=== PATIENT | male | born 1940 | race Caucasian/White ===

== ENCOUNTER 2018-02-15 10:17 | Day surgery (SDC) | payer MEDICARE ==
[2018-02-12 08:34] VITALS: BMI 39.9
[2018-02-15] MEDS ORDERED: Propofol 200 MG/20 ML VIAL ONE (14:43)
[2018-02-15] MEDS ORDERED: Lidocaine 1% PF 5 ML VIAL ONE (14:43)
--- NOTE | 2018-02-15 15:10 | OP ---
DATE OF PROCEDURE: 02/15/2018 PROCEDURE: Colonoscopy with polypectomy. INDICATIONS FOR PROCEDURE: Hematochezia, history of colon polyps. DESCRIPTION OF PROCEDURE: After the risks and benefits of the procedure were explained to the patien t including risks of bleeding, infection, perforation, reaction to anesthesia and/or pain, informed c onsent was obtained. The patient was then taken to the endoscopy suite where deep sedation was admin istered via propofol and anesthesia support. A standard colonoscope was then introduced into the rec deb and advanced to the terminal ileum with careful examination of the mucosa upon withdrawal and the findings listed below. The quality of the prep was good. The patient tolerated the procedure well with no immediate perioperative complications. DIGITAL RECTAL EXAM: Small external hemorrhoids (nonbleeding) were seen on external exam. Normal sp hincter tone. COLON FINDINGS: Normal appearing mucosa was seen in the terminal ileum. Normal appearing mucosa was seen in the cecum, ileocecal valve and appendiceal orifice. Normal appearing mucosa was seen in the ascending and transverse colons. Two polyps measuring 3 mm and 5 mm in size were seen in the descen ding colon and completely removed with cold snare polypectomy. They were retrieved and placed in a s pecimen jar for evaluation. Normal appearing mucosa was seen in the sigmoid colon. Two additional p olyps measuring 2 to 3 mm in size were seen in the rectum and completely removed with cold biopsy for ceps. They were retrieved and placed in a specimen jar for evaluation. Multiple diverticula were se en throughout the colon in the transverse, descending and sigmoid colon, especially within the left c olon. These diverticula were medium to large in nature, but did not show any increased mucosal eryth nicole and/or inflammation. Hypertrophied anal papillae and small internal hemorrhoids were seen on ret roflexion. FINDINGS: 1. Two polyps measuring 3 mm and 5 mm in size were seen in the descending colon and completely remov ed with cold snare polypectomy. 2. Two additional polyps measuring 2 to 3 mm in size were seen in the rectum and completely removed with biopsy forceps. 3. Internal and external hemorrhoids (most likely source of the patient's hematochezia). 4. Hypertrophied anal papillae. 5. Moderate to severe left-sided diverticulosis. RECOMMENDATIONS: 1. We will follow up on pathology results with next colonoscopy screening interval depending on path ology. 2. We would recommend higher fiber diet given presence of internal and external hemorrhoids and dive rticulosis. 3. Recommend higher fiber diet. 4. Advised the patient against spending prolonged amount of time on the toilet as this can exacerbat e hemorrhoids. 5. Can use topical preparations for external hemorrhoids with flares of hematochezia. 6. Can follow up in GI clinic as needed.
== END 2018-02-15 14:56 | disposition home or self-care (01) ==
LOC: SDC 10:17
PROVIDERS: ATTEND Internal Medicine
PROC: 0DBM8ZX Excision of Descending Colon, Via Natural or Artificial Opening Endoscopic, Diagnostic (ICD-10-PCS; principal; 2018-02-15)
PROC: 0DBP8ZX Excision of Rectum, Via Natural or Artificial Opening Endoscopic, Diagnostic (ICD-10-PCS; 2018-02-15)
DX: K92.1 Melena (principal); D12.4 Benign neoplasm of descending colon; K63.5 Polyp of colon; K64.4 Residual hemorrhoidal skin tags; K57.30 Diverticulosis of large intestine without perforation or abscess without bleeding; K62.89 Other specified diseases of anus and rectum; K64.8 Other hemorrhoids; I10 Essential (primary) hypertension; E78.00 Pure hypercholesterolemia, unspecified; D64.9 Anemia, unspecified; M19.90 Unspecified osteoarthritis, unspecified site; J45.909 Unspecified asthma, uncomplicated; G47.30 Sleep apnea, unspecified; Z79.51 Long term (current) use of inhaled steroids; Z79.2 Long term (current) use of antibiotics; Z79.82 Long term (current) use of aspirin; Z79.899 Other long term (current) drug therapy; Z88.1 Allergy status to other antibiotic agents; Z88.0 Allergy status to penicillin; Z88.8 Allergy status to other drugs, medicaments and biological substances; Z98.890 Other specified postprocedural states; Z87.891 Personal history of nicotine dependence; Z86.010 Personal history of colon polyps; Z83.71 Family history of colonic polyps
CPT/HCPCS: 88305; J2001; J2704

== ENCOUNTER 2018-06-14 11:43 | Outpatient (CLI) | payer MEDICARE | END 2018-06-14 11:44 | disposition home or self-care (01) | LOC: BICRAD 11:43 | PROVIDERS: ATTEND Family Medicine | DX: R05 Cough (principal); I70.0 Atherosclerosis of aorta | CPT/HCPCS: 71046 ==

== ENCOUNTER 2018-07-26 10:09 | Outpatient (CLI) | payer MEDICARE ==
[~2018-07-26 10:09] MED LIST: Iopamidol 370 76% 100 ML VIAL ONE
--- NOTE | 2018-07-26 12:03 | CT ---
CT ANGIOGRAM CHEST WITH IV CONTRAST AND 3D RECONSTRUCTIONS: Date: 07-26-18 History: Shortness of breath. Recently diagnosed with bronchitis. Patient underling chemotherapy seco ndary to renal cell carcinoma. History of right nephrectomy. Comparison: None available. FINDINGS: There is suboptimal timing of the contrast bolus which limits evaluation for pulmonary emboli. There is no filling defect within the central pulmonary arteries, but small filling defects within the segm ental and subsegmental pulmonary arteries are difficult to entirely exclude. The thoracic aorta is normal in caliber without evidence of an aortic dissection. Vascular calcifications are seen in the aortic arch as well as involving the coronary arteries. There is no evidence of lymphadenopathy. A noncalcified pulmonary nodule is seen in the inferior medial aspect of the right upper lobe adjacen t to the mediastinum measuring 1 cm. An approximately 1 cm pleural based pulmonary nodule is also see n at the posterior aspect of the left lung base in addition to approximately 1 cm noncalcified pulmon sherron nodule at the right lung base. There is a ring enhancing lesion seen in the left hepatic lobe near the dome of the liver measuring 1 .7 cm with incompletely imaged hypodense lesion in the posterior segment right hepatic lobe measuring 1.4 cm. Punctate tiny low density lesion is also seen in the lateral segment left hepatic lobe. There is incomplete imaging of an enhancing nodule involving the right adrenal gland measuring 1.4 cm . Calcified granulomata are seen at the right lung base as well as in the lateral aspect dome of the li vincenzo. No lytic or sclerotic osseous lesions are seen. IMPRESSION: 1. Findings likely related to metastatic disease with bilateral pulmonary nodules, hepatic lesions, a s well as right adrenal nodule. Direct correlation with prior studies would be helpful for further ev aluation. 2. Suboptimal evaluation of the pulmonary arteries secondary to timing of the contrast bolus. While n o central pulmonary embolus is seen, a pulmonary embolus involving the segmental or subsegmental pulm onary arteries cannot be excluded based on this exam. POS: [facility]
== END 2018-07-26 10:10 | disposition home or self-care (01) ==
LOC: CT 10:09
PROVIDERS: ATTEND Internal Medicine Hematology & Oncology
DX: C78.7 Secondary malignant neoplasm of liver and intrahepatic bile duct (principal); C80.1 Malignant (primary) neoplasm, unspecified; R06.02 Shortness of breath; R91.8 Other nonspecific abnormal finding of lung field; K76.9 Liver disease, unspecified; E27.9 Disorder of adrenal gland, unspecified; Z90.5 Acquired absence of kidney
CPT/HCPCS: 71275

== ENCOUNTER 2019-09-08 11:44 | Outpatient (CLI) | payer MEDICARE ==
--- NOTE | 2019-09-08 11:58 | RAD ---
Exam: Chest 2 views HISTORY:History of renal and hepatic malignancy Comparison: 06/14/2018 FINDINGS: Lungs: No masses or consolidation. Cardiac silhouette: Stable size There is vascular calcification. Pulmonary vessels: Normal Pleural Spaces: Clear Pneumothorax: None Osseous abnormalities: None of acuity. IMPRESSION: No focal consolidation.
== END 2019-09-08 11:45 | disposition home or self-care (01) ==
LOC: BICRAD 11:44
PROVIDERS: ATTEND Internal Medicine Hematology & Oncology
DX: R06.02 Shortness of breath (principal); D49.511 Neoplasm of unspecified behavior of right kidney; C78.7 Secondary malignant neoplasm of liver and intrahepatic bile duct; Z79.899 Other long term (current) drug therapy
CPT/HCPCS: 36415; 71046; 80053; 82248; 83615; 84100; 84436; 84443; 84550

== ENCOUNTER 2019-09-21 11:17 | Outpatient (CLI) | payer MEDICARE ==
--- NOTE | 2019-09-21 13:04 | RAD ---
LUMBAR SPINE TWO VIEWS: HISTORY: Low back pain. FINDINGS: The lumbar vertebrae maintain height. Moderate degenerative changes are seen throughout with spurring from all lumbar vertebrae. Degenerative disk changes at all levels. Prominent facet hypertrophy thro ughout the lumbar spine. Mild posterior listhesis is noted at the L1-L2, L2-L3 and L3-L4 levels. There is a grade 1 anterior spondylolisthesis at L4-L5. IMPRESSION: Moderate degenerative changes of the lumbar spine as described. POS: [facility]
== END 2019-09-21 11:18 | disposition home or self-care (01) ==
LOC: BICRAD 11:17
PROVIDERS: ATTEND Family Medicine
DX: M54.5 Low back pain (principal); M47.816 Spondylosis without myelopathy or radiculopathy, lumbar region
CPT/HCPCS: 72100

== ENCOUNTER 2020-02-24 07:50 | Outpatient (CLI) | payer MEDICARE ==
[2020-02-24] MEDS ORDERED: Iopamidol-370 76% 500 ML 1 ML ONE (08:39)
--- NOTE | 2020-02-24 09:56 | CT ---
CT OF THE CHEST WITH CONTRAST CT OF THE ABDOMEN AND PELVIS WITH CONTRAST: COMPARISON: CT chest, abdomen, and pelvis 12/08/2019 and 11/08/2019. HISTORY: Right renal cancer status post nephrectomy with secondary cancer of the liver and intrahepatic biliar y duct. TECHNIQUE: 1. Multiple contiguous axial images were obtained in a CT of the chest with contrast. Sagittal and coronal reformats were performed. 2. Multiple contiguous axial images were obtained in a CT of the abdomen and pelvis with contrast. P.o. contrast was administered. Sagittal and coronal reformats were performed. FINDINGS: CHEST: There are scattered stable nodules in the lungs. In the medial aspect of the right upper lobe there is a 13 mm nodule. In the posterior aspect of the right upper lobe, there is a less than 4 mm nodule . In the lingula, there is an 11 mm nodule just above the right hemidiaphragm, there is a nodule sivan suring approximately 6 mm in size. No new pulmonary nodules are seen compared to the prior CTs from [facility]. The heart is normal in size without focal cardiac abnormality. No hilar or mediastinal lymphadenopat hy are seen. Calcifications are seen in the coronary arteries and aorta. The chest wall soft tissue s are unremarkable. There is a stable area of expansion of the left 10th rib at the costochondral ju nction measuring 1.5 cm in size. This is likely normal for this patient and does not likely represen t a metastatic lesions are seen in the thoracic skeleton. ABDOMEN AND PELVIS: The patient is status post right nephrectomy. There are stable hypodensities in the liver which are too small to definitely characterize. These could represent cysts. There is a stable 2.5 cm right a drenal mass. In the anterior aspect of the superior pole of the left kidney, there is a 3.5 cm area which demonstrates slight thickening of the cortex of the kidney compared to the rest of the kidney. This could represent a lobulation of the kidney, but a 3.5 cm mass in this location could not be ent irely excluded. The left adrenal gland, gallbladder, spleen, and pancreas are unremarkable. No free air, free fluid, or stranding changes are seen in the abdomen or pelvis. Scattered diverticu la are seen in the colon. The small bowel is unremarkable. No abdominal or pelvic lymphadenopathy a re seen. No suspicious osseous lesions are seen in the bones of the pelvis or lumbar spine. The abd ominal wall soft tissues are unremarkable. IMPRESSION: 1. Postsurgical changes from right nephrectomy. 2. Stable right adrenal mass. 3. Questionable abnormality in the anterior aspect of the left kidney along the superior pole. This remains stable compared to the prior exams, but a followup exam in 6 months is recommended to ensure continued stability. This may represent a lobulation of the kidney. 4. Stable pulmonary nodules. 5. Stable hypodensities in the liver. These are too small to definitely characterize and could pote ntially represent cysts. 6. Diverticulosis. POS: [facility]
== END 2020-02-24 07:51 | disposition home or self-care (01) ==
LOC: BICCT 07:50
PROVIDERS: ATTEND Internal Medicine Hematology & Oncology
DX: D49.511 Neoplasm of unspecified behavior of right kidney (principal); C78.7 Secondary malignant neoplasm of liver and intrahepatic bile duct; Z79.899 Other long term (current) drug therapy; Z90.5 Acquired absence of kidney; E27.8 Other specified disorders of adrenal gland; R91.8 Other nonspecific abnormal finding of lung field; K57.90 Diverticulosis of intestine, part unspecified, without perforation or abscess without bleeding; R93.3 Abnormal findings on diagnostic imaging of other parts of digestive tract; K76.89 Other specified diseases of liver
CPT/HCPCS: 36415; 71260; 74177; 80053; 83735; 84439; 84443; 85025; Q9967

== ENCOUNTER 2020-06-05 07:44 | Outpatient (CLI) | payer MEDICARE ==
--- NOTE | 2020-06-05 09:29 | CT ---
CT chest with IV contrast CT abdomen and pelvis with IV and oral contrast HISTORY: Right renal neoplasm. Secondary malignant neoplasm of liver and intrahepatic bile duct. Rest aging. COMPARISON: 02/24/2020, 12/08/2019, 11/08/2019. FINDINGS: Small well-circumscribed lucencies about the right sternoclavicular joint with the appearan ce of subcortical cysts are stable. Well-circumscribed nodule abutting the right upper mediastinum in the anterior segment right upper lo be is stable at 1.4 cm x 1.2 cm diameters on the axial images. The 1.3 cm soft tissue nodule within the lateral aspect of the left upper lobe has enlarged slightly (previously 1.0 cm). The 1.1 cm nodule abutting the right posterior medial cardiophrenic angle is stable. Subtle areas of mild parenchymal peripheral groundglass density at each posterior lung base are unchanged. There is calcification within the arterial structures, including the coronary arteries. Small amount of oral contrast material is evident within the mid to distal esophagus. The ill-defined subtle low density 1.5 cm lesion within the posterior segment right liver lobe periph erally and the tiny ill-defined low-density lesion within the lateral segment left liver lobe are stable. Right kidney is surgically absent. Right adrenal mass is now 3.0 cm x 2.8 cm greatest diamete rs (previously 2.5 cm x 2.4 cm). The area of lobular masslike prominence at the anterior aspect of the superior pole left kidney is stable at 3.5 cm greatest transverse diameter. At the level of the pancreatic head, a focal area of masslike prominence is now 4.9 cm x 4.9 cm great est diameters. On the previous study, this area measured 6.0 cm x 5.6 cm greatest diameters and was also present on prior outside studies from [facility]. Immediately superior, near the junction of the pancreatic neck and head, a lobular masslike prominence is 4.8 cm x 4.8 cm (previously 4.9 cm x 4.4 cm). A 1.6 cm nodule projecting anteriorly from the pancreatic body and a small nodular prominenc e at the pancreatic tail are stable. Diverticula arise from the colon without adjacent inflammation. Degenerative changes throughout the thoracolumbar spine. IMPRESSION : One of the nodules within the left lung upper lobe has enlarged slightly (1.3 cm). Other lung nodules and small liver lesions are stable. Right adrenal mass has enlarged to 3.0 cm. The largest of the pancreatic masses have decreased in size from the previous exams. The smaller ones are stable. Lobular prominence at the superior pole of the left kidney is unchanged in appearance. Diverticulosis. No evidence of diverticulitis. Atherosclerosis.
== END 2020-06-05 07:45 | disposition home or self-care (01) ==
LOC: BICCT 07:44
PROVIDERS: ATTEND Internal Medicine Hematology & Oncology
DX: C78.7 Secondary malignant neoplasm of liver and intrahepatic bile duct (principal); D49.511 Neoplasm of unspecified behavior of right kidney
CPT/HCPCS: 36415; 71260; 74177; 80053; 82248; 83615; 84100; 84436; 84443; 84550; 85025

== ENCOUNTER 2020-09-18 07:55 | Outpatient (CLI) | payer MEDICARE ==
[2020-09-18] MEDS ORDERED: Iopamidol-370 76% 500 ML 1 ML ONE (08:55)
--- NOTE | 2020-09-18 11:40 | CT ---
EXAM: CT chest, abdomen, and pelvis with IV contrast: HISTORY: Right kidney cancer with secondary cancer of liver and intrahepatic bile duct. COMPARISON: 06/05/2020 FINDINGS: CT THORAX: Lungs: The right upper lobe pulmonary nodule adjacent to the mediastinum is again seen measuring 1.4 cm x 1.2 cm and unchanged in size. The pulmonary nodule seen at the right lung base medially and inferiorly measuring 1.2 cm is stable in size. There is a lobulated pulmonary nodule in the left uppe r lobe measuring 1.3 cm in greatest dimension which is also similar in size to prior exam. Stable tiny subcentimeter pulmonary nodule posterior right upper lobe is again present. No additional pulmon sherron nodule or mass is visualized. Minimal groundglass densities at each lung base are stable. Pleura: No pleural effusion. Lymph nodes: The enlarged subcarinal lymph node is again present measuring 3.8 cm x 2.2 cm with prior measurement of 3.4 cm x 2.1 cm. A few much smaller subcarinal lymph nodes are also seen in the posterior mediastinum which are unchanged. Mediastinum: Vascular calcifications are seen in the thoracic aorta and involving the coronary arteri es. Chest wall: Minimal gynecomastia on the right. CT ABDOMEN AND PELVIS: Liver: Stable subcentimeter hypodense lesions left hepatic lobe with stable 1.2 cm hypodense lesion i n the posterior segment right hepatic lobe. Gallbladder: Within normal limits. Pancreas: The previously noted lobulated masses as well as additional smaller masses involving the pa ncreas are again seen. Largest mass involving the pancreatic head demonstrates heterogeneity and measures larger in size on the current study with measurement of 6.6 cm x 5.5 cm and previous measure ment of 6.4 cm x 5.3 cm cm. The mass at the junction of the head and neck of the pancreas measures 5.9 cm x 4.5 cm with previous measurements of 4.8 cm x 4.8 cm. Immediately adjacent to this mass is a nodular masslike density which may represent a portion of this larger mass. Within the body of the pancreas there is a nodule measuring 1.9 cm with previous measurement of 1.6 cm. There is a small mas s at the tail of the pancreas measuring 1.4 cm similar in size to prior exam. Spleen: Within normal limits. Adrenal glands: The right adrenal mass has enlarged measuring 4.1 cm x 3.3 cm in maximal dimensions w ith previous measurement of 3 cm x 2.8 cm. The left adrenal gland has a normal CT appearance. Kidneys: Evidence of right nephrectomy. The nodular prominence anterior aspect superior pole left kid bev is again seen is thought to be related to normal lobulated portion of the kidney. Urinary Bladder: Incompletely distended but normal in appearance. Reproductive organs: Within normal limits for patient's age. Bowel: Colonic diverticulosis is again seen with small amount retained fecal material seen in the col on. Loops of small bowel are normal in caliber. Adenopathy:No lymphadenopathy within the abdomen or pelvis. Peritoneum: No free fluid or fluid collection is seen. No free intraperitoneal gas is identified. Abdominal wall: No abnormalities seen. Osseous structures: No suspicious lytic or sclerotic osseous lesions are identified. Degenerative jose luis nges are seen in the spine with rate 1 anterolisthesis of L4 on L5. There is what appears to be remote fracture involving the lateral left 10th rib. IMPRESSION: 1. Interval enlargement of the right adrenal mass with greatest dimension of 4.1 cm. 2. Multiple pancreatic masses largest in the head of the pancreas which demonstrates heterogeneity an d measures 6.6 cm. This mass measures slightly larger in size compared to prior study. 3. Bilateral pulmonary nodules not significantly changed in size. No new pulmonary nodule is seen. 4. Stable subcentimeter hypodense lesions in the left hepatic lobe as well as stable hypodense lesion right hepatic lobe. 5. Mild enlargement of subcarinal lymph node.
== END 2020-09-18 07:56 | disposition home or self-care (01) ==
LOC: BICCT 07:55
PROVIDERS: ATTEND Internal Medicine Hematology & Oncology
DX: C78.7 Secondary malignant neoplasm of liver and intrahepatic bile duct (principal); D49.511 Neoplasm of unspecified behavior of right kidney; E27.8 Other specified disorders of adrenal gland; K86.89 Other specified diseases of pancreas; R91.8 Other nonspecific abnormal finding of lung field; K76.9 Liver disease, unspecified; R59.0 Localized enlarged lymph nodes
CPT/HCPCS: 36415; 71260; 74177; 80053; 82248; 83615; 84100; 84436; 84443; 84550; 85025; Q9967

== ENCOUNTER 2020-12-19 08:00 | Outpatient (CLI) | payer MEDICARE ==
--- NOTE | 2020-12-19 08:53 | CT ---
EXAM: CT Chest Abd Pelvis W Con PROVIDED CLINICAL HISTORY: Renal cancer COMPARISON: 09/18/2020 FINDINGS: The heart, pericardium and great vessels demonstrate a stable CT appearance. Vascular calcification i ncluding coronary calcium is redemonstrated. Enlarged subcarinal lymph node is again seen, stable with respect to prior. No additional thoracic lymph node enlargement is evident. Bilateral pulmonary nodules are redemonstrated, stable. There is no evidence for new nodule. No pleural fluid or pneumothorax apparent. The airway appears patent and of normal caliber. Interval enlargement of right adrenal mass, now measuring about 4 cm x 4.7 cm in greatest transverse dimensions, as compared to 3.3 x 4.1 cm on prior. Multiple pancreatic masses are redemonstrated, stable. Multiple subcentimeter hepatic hypodensities are redemonstrated, stable. The solid abdominal organs demonstrate an otherwise unremarkable CT appearance, with changes of right nephrectomy redemonstrated. There is no bowel dilatation, inflammatory fat stranding, free fluid or lymph node enlargement appare nt within the abdomen and pelvis. The osseous structures demonstrate no concerning lytic or blastic lesions. IMPRESSION: 1. Interval enlargement of right adrenal mass. 2. Otherwise stable exam.
[2020-12-19] MEDS ORDERED: Iopamidol-370 76% 500 ML 1 ML ONE (14:14)
== END 2020-12-19 08:01 | disposition home or self-care (01) ==
LOC: BICCT 08:00
PROVIDERS: ATTEND Internal Medicine Hematology & Oncology
DX: C78.7 Secondary malignant neoplasm of liver and intrahepatic bile duct (principal); D49.511 Neoplasm of unspecified behavior of right kidney; C80.1 Malignant (primary) neoplasm, unspecified; E27.8 Other specified disorders of adrenal gland
CPT/HCPCS: 71260; 74177; Q9967

== ENCOUNTER 2021-02-18 08:01 | Outpatient (CLI) | payer MEDICARE ==
[2021-02-18] MEDS ORDERED: Iopamidol-370 76% 500 ML 1 ML ONE (14:09)
== END 2021-02-18 08:02 | disposition home or self-care (01) ==
LOC: BICCT 08:01
PROVIDERS: ATTEND Internal Medicine Hematology & Oncology
DX: C78.7 Secondary malignant neoplasm of liver and intrahepatic bile duct (principal); D49.511 Neoplasm of unspecified behavior of right kidney; R91.8 Other nonspecific abnormal finding of lung field; E27.8 Other specified disorders of adrenal gland; K86.9 Disease of pancreas, unspecified; R59.0 Localized enlarged lymph nodes
CPT/HCPCS: 71260; 74177; Q9967

== ENCOUNTER 2021-05-14 08:34 | Outpatient (CLI) | payer MEDICARE ==
[2021-05-14] MEDS ORDERED: Iopamidol-370 76% 500 ML 1 ML ONE (13:29)
== END 2021-05-14 08:35 | disposition home or self-care (01) ==
LOC: BICCT 08:34
PROVIDERS: ATTEND Internal Medicine Hematology & Oncology
DX: D49.511 Neoplasm of unspecified behavior of right kidney (principal); C78.7 Secondary malignant neoplasm of liver and intrahepatic bile duct; E27.8 Other specified disorders of adrenal gland
CPT/HCPCS: 71260; 74177; 82565; Q9967

== ENCOUNTER 2021-07-28 19:30 | Outpatient (CLI) | payer MEDICARE | END 2021-07-28 19:31 | disposition home or self-care (01) | LOC: SLEEPLAB 19:30 | PROVIDERS: ATTEND Internal Medicine Critical Care Medicine | DX: G47.33 Obstructive sleep apnea (adult) (pediatric) (principal); R06.83 Snoring; G47.10 Hypersomnia, unspecified; G47.61 Periodic limb movement disorder; E66.9 Obesity, unspecified; Z68.36 Body mass index [BMI] 36.0-36.9, adult | CPT/HCPCS: 95811 ==

== ENCOUNTER 2024-09-22 07:12 | Day surgery (SDC) | payer MEDICARE ==
[2024-09-21 11:51] VITALS: BMI 33.8
[2024-09-22] MEDS ORDERED: PROPOFOL 20 ML ONE ×3 (08:23→09:07)
[2024-09-22] MEDS ORDERED: Glucagon 1 MG/ML KIT ONE (08:55)
== END 2024-09-22 11:08 | disposition home or self-care (01) ==
LOC: SDC 07:12
PROVIDERS: ATTEND Internal Medicine
PROC: 0DB98ZZ Excision of Duodenum, Via Natural or Artificial Opening Endoscopic (ICD-10-PCS; principal; 2024-09-22)
PROC: 0DB78ZZ Excision of Stomach, Pylorus, Via Natural or Artificial Opening Endoscopic (ICD-10-PCS; 2024-09-22)
PROC: 0DB68ZZ Excision of Stomach, Via Natural or Artificial Opening Endoscopic (ICD-10-PCS; 2024-09-22)
PROC: 0DB58ZZ Excision of Esophagus, Via Natural or Artificial Opening Endoscopic (ICD-10-PCS; 2024-09-22)
PROC: 0DBK8ZX Excision of Ascending Colon, Via Natural or Artificial Opening Endoscopic, Diagnostic (ICD-10-PCS; 2024-09-22)
PROC: 0DBL8ZX Excision of Transverse Colon, Via Natural or Artificial Opening Endoscopic, Diagnostic (ICD-10-PCS; 2024-09-22)
PROC: 0DBN8ZX Excision of Sigmoid Colon, Via Natural or Artificial Opening Endoscopic, Diagnostic (ICD-10-PCS; 2024-09-22)
PROC: 0DBM8ZX Excision of Descending Colon, Via Natural or Artificial Opening Endoscopic, Diagnostic (ICD-10-PCS; 2024-09-22)
PROC: 0DBH8ZX Excision of Cecum, Via Natural or Artificial Opening Endoscopic, Diagnostic (ICD-10-PCS; 2024-09-22)
DX: Z12.11 Encounter for screening for malignant neoplasm of colon (principal); D12.0 Benign neoplasm of cecum; D12.2 Benign neoplasm of ascending colon; D12.3 Benign neoplasm of transverse colon; D12.4 Benign neoplasm of descending colon; K57.30 Diverticulosis of large intestine without perforation or abscess without bleeding; K64.4 Residual hemorrhoidal skin tags; C24.1 Malignant neoplasm of ampulla of Vater; K29.50 Unspecified chronic gastritis without bleeding; K22.70 Barrett's esophagus without dysplasia; K62.89 Other specified diseases of anus and rectum; K44.9 Diaphragmatic hernia without obstruction or gangrene; K31.7 Polyp of stomach and duodenum; K63.5 Polyp of colon; K21.9 Gastro-esophageal reflux disease without esophagitis; I10 Essential (primary) hypertension; D64.9 Anemia, unspecified; E78.00 Pure hypercholesterolemia, unspecified; Z90.49 Acquired absence of other specified parts of digestive tract; Z79.890 Hormone replacement therapy; Z79.899 Other long term (current) drug therapy; Z88.8 Allergy status to other drugs, medicaments and biological substances; Z86.0100 Personal history of colon polyps, unspecified; Z85.520 Personal history of malignant carcinoid tumor of kidney; Z88.1 Allergy status to other antibiotic agents; Z87.891 Personal history of nicotine dependence; Z90.89 Acquired absence of other organs; Z98.890 Other specified postprocedural states
CPT/HCPCS: 43239; 45385; J1611; J2704; 88305; 88341; 88342

== ENCOUNTER 2024-12-02 05:56 | Day surgery (SDC) | payer MEDICARE ==
[2024-12-01 09:46] VITALS: BMI 34.4
[2024-12-02] MEDS ORDERED: Lidocaine 1% PF 5 ML VIAL ONE (06:43)
[2024-12-02] MEDS ORDERED: fentaNYL PF 100 MCG/2 ML SYRINGE ONE (06:43)
[2024-12-02] MEDS ORDERED: Rocuronium Bromide 10 MG/ML (10ML VIAL) ONE (06:43)
[2024-12-02] MEDS ORDERED: PROPOFOL 20 ML ONE (06:43)
[2024-12-02] MEDS ORDERED: Lidocaine 1% MPF 2 ML VIAL ONE (06:51)
[2024-12-02] MEDS ORDERED: Iopamidol 30 ML ONE (07:03)
[2024-12-02] MEDS ORDERED: Indomethacin 50 MG SUPP ONE (07:25)
[2024-12-02] MEDS ORDERED: Dexamethasone 20 MG/5 ML VIAL ONE (08:08)
[2024-12-02] MEDS ORDERED: Ondansetron PF 4 MG/2 ML Vial ONE (08:08)
[2024-12-02] MEDS ORDERED: SUGAMMADEX SODIUM 200 MG/2 ML VIAL ONE (08:25)
== END 2024-12-02 10:20 | disposition home or self-care (01) ==
LOC: SDC 05:56
PROVIDERS: ATTEND Internal Medicine
PROC: 0FBC8ZX Excision of Ampulla of Vater, Via Natural or Artificial Opening Endoscopic, Diagnostic (ICD-10-PCS; principal; 2024-12-02)
DX: C78.4 Secondary malignant neoplasm of small intestine (principal); C64.9 Malignant neoplasm of unspecified kidney, except renal pelvis; D12.6 Benign neoplasm of colon, unspecified; D64.9 Anemia, unspecified; K22.70 Barrett's esophagus without dysplasia; K21.9 Gastro-esophageal reflux disease without esophagitis; I10 Essential (primary) hypertension; E78.00 Pure hypercholesterolemia, unspecified; J45.909 Unspecified asthma, uncomplicated; J18.9 Pneumonia, unspecified organism; G62.9 Polyneuropathy, unspecified; Z98.890 Other specified postprocedural states; Z90.49 Acquired absence of other specified parts of digestive tract; Z90.89 Acquired absence of other organs; Z87.891 Personal history of nicotine dependence; Z88.0 Allergy status to penicillin; Z88.1 Allergy status to other antibiotic agents; Z88.8 Allergy status to other drugs, medicaments and biological substances; Z79.890 Hormone replacement therapy; Z79.2 Long term (current) use of antibiotics; Z79.1 Long term (current) use of non-steroidal anti-inflammatories (NSAID); Z79.899 Other long term (current) drug therapy
CPT/HCPCS: 43261; 74330; J1100; J2405; J2704; Q9967; 88305; 88341; 88342

== ENCOUNTER 2025-07-21 15:54 | Emergency (ER) | payer MEDICARE ==
[2025-07-21 17:03] LABS: #Basophils Less than 0.03 10x3/uL (0.0-0.2); #Eosinophils Less than 0.03 10x3/uL (0.0-0.7); #Monocytes 0.37 10x3/uL (0.11-0.59); #Neutrophils 4.46 10x3/uL (1.40-6.50); %Basophils 0.0 % (0.0-1.0); %Eosinophils 0.0 % (0.0-10.0); %Lymphocytes 21.3 % (21.0-51.0); %Monocytes 6.0 % (0.0-10.0); %Neutrophils 72.5 % (42.0-75.0); Hematocrit 22.2 % (42.0-52.0); Hemoglobin 6.4 g/dL (14.0-18.0); Mean Corpuscular Hemoglobin 28.8 pg (27.0-31.0); Mean Corpuscular Volume 100.0 fL (78.0-98.0); Platelet Count 268 10x3/uL (130-400); Red Blood Cell (RBC) Count 2.22 mill/uL (4.70-6.10); White Blood Cell (WBC) Count 6.15 10x3/uL (4.8-10.8)
[2025-07-21 17:13] LABS: ALT (SGPT) 15 U/L (Less than 45); AST (SGOT) 27 U/L (11-34); Albumin 2.0 g/dL (3.1-4.5); Alkaline Phosphatase 135 U/L (40-110); Anion Gap 15 mmol/L (10-20); BUN (Urea Nitrogen) 25 mg/dL (8.4-25.7); Bilirubin, Total 0.1 mg/dL (0.3-1.2); Calc. Creatinine Clearance 0 mL/min (70-130); Calcium 7.6 mg/dL (7.8-10.44); Carbon Dioxide 23 mmol/L (23-31); Chloride 107 mmol/L (98-107); Globulin 4.3 g/dL (2.4-3.5); Glucose 124 mg/dL (83-110); Potassium 4.1 mmol/L (3.5-5.1); Sodium 141 mmol/L (136-145)
[2025-07-21 17:30] LABS: Anisocytosis MODERATE=16-30 cells HPF (0-5); Macrocytosis SLIGHT = 6-15 cells HPF (0-5); Platelet Adequacy Comment Platelets Normal; Polychromasia SLIGHT = 2-3 cells HPF (0-2); Schistocytes SLIGHT = 2-5 cells HPF (0-1); Stomatocytes SLIGHT = 2-5 cells HPF (0-1)
[2025-07-21 17:41] LABS: INR-International Normal Ratio 1.3; Prothrombin Time 16.0 sec (12.0-14.7)
[2025-07-21 17:42] LABS: PTT 44.1 sec (22.9-36.1)
== END 2025-07-21 23:50 | disposition home or self-care (01) ==
LOC: ERS 15:54
DX: D64.9 Anemia, unspecified (principal); I10 Essential (primary) hypertension
CPT/HCPCS: 36430; 80053; 85025; 85610; 85730; 86850; 86900; 86901; 86920; 99284; P9016; 36415

== ENCOUNTER 2025-08-07 10:21 | Day surgery (SDC) | payer MEDICARE ==
[2025-08-07] MEDS ORDERED: Acetaminophen 500 MG TAB PO SCH (11:00)
[2025-08-07] MEDS ORDERED: diphenhydrAMINE 25 MG CAP PO SCH (11:00)
[2025-08-07 15:57] VITALS: BP 155/69; TEMP 97.8
== END 2025-08-07 15:29 | disposition home or self-care (01) ==
LOC: ONC/OP 10:21
PROVIDERS: ATTEND Internal Medicine Hematology & Oncology
DX: D64.9 Anemia, unspecified (principal); D69.6 Thrombocytopenia, unspecified
CPT/HCPCS: 36430; 86850; 86900; 86901; 86920; P9040